=== PATIENT | female | born 1990 | race African-American/Black ===

== ENCOUNTER 2017-01-19 19:45 | Emergency (ER) | payer OTHER ==
[~2017-01-19] VITALS: Ht 157.5 cm; Wt 61.3 kg
[2017-01-19 22:35] VITALS: BP 112/70
== END 2017-01-19 22:36 | disposition home or self-care (01) ==
LOC: EME 19:45
DX: M25.561 Pain in right knee (principal)
CPT/HCPCS: 93971; 99281; 99284

== ENCOUNTER 2017-01-22 23:17 | Emergency (ER) | payer OTHER ==
[~2017-01-22] VITALS: Ht 170.2 cm; Wt 61.9 kg
[2017-01-23] MEDS ORDERED: OMEPRAZOLE10 M1 PO (00:30)
[2017-01-23] MEDS ORDERED: LIDOCAINE20 MG/1 M5 PO (00:30)
[2017-01-23 00:38] VITALS: BP 114/70
== END 2017-01-23 00:40 | disposition home or self-care (01) ==
LOC: EME 23:17
DX: K21.9 Gastro-esophageal reflux disease without esophagitis (principal); R13.10 Dysphagia, unspecified
CPT/HCPCS: 99281; 99283

== ENCOUNTER 2017-09-07 00:17 | Emergency (ER) | payer OTHER ==
[~2017-09-07] VITALS: Ht 157.5 cm; Wt 58.8 kg
[~2017-09-07 00:17] MED LIST: LIDOCAINE20 MG/1 M5 PO; OMEPRAZOLE10 M1 PO
[2017-09-07 00:43] LABS: HEMATOCRIT 36.9 % (36.0-46.0); HEMOGLOBIN 12.3 G/DL (11.9-15.5); MCH 26.3 PG (29.0-34.0); MCHC 33.3 G/DL (30.0-36.0); PLATELET COUNT 267 K/uL (156-360); RBC DIS.WIDTH-CV 12.5 % (11.8-14.6); RBC DIS.WIDTH-SD 35.7 % (39-53); RED BLOOD COUNT 4.67 M/uL (3.80-5.20); WHITE BLOOD COUNT 10.3 K/uL (4.1-10.2)
[2017-09-07 00:55] LABS: CHLORIDE 108 mEq/L (99-109); POTASSIUM 3.7 mEq/L (3.7-5.4); SODIUM 139 mEq/L (136-147)
[2017-09-07 00:57] LABS: GLUCOSE 101 mg/dL (70-99)
[2017-09-07 01:01] LABS: CREATININE 0.8 mg/dL (0.6-1.3); GFR ESTIMATE (CALCULATED) > 59 mL/min/
[2017-09-07 01:02] LABS: UREA NITROGEN (BUN) 10 mg/dL (9-23)
[2017-09-07 01:10] LABS: QUANTITATIVE HCG < 4.0 MIU/ML
[2017-09-07 01:17] LABS: APPEARANCE CLEAR ((CLEAR)); BILIRUBIN NEGATIVE; BLOOD NEGATIVE; COLOR YELLOW ((YELLOW)); GLUCOSE (STRIP) NEGATIVE; KETONES NEGATIVE; LEUKOCYTES NEGATIVE; NITRITE NEGATIVE; PROTEIN (STRIP) NEGATIVE; SPECIFIC GRAVITY 1.011 (1.000-1.030); UCUL ADDED? NO; UROBILINOGEN 0.2 MG/DL (0.2-1.0)
[2017-09-07] MEDS ORDERED: ZOFRAN4 MG PO (01:35)
[2017-09-07 02:06] VITALS: BP 122/59
== END 2017-09-07 02:07 | disposition home or self-care (01) ==
LOC: EME 00:17
DX: R11.2 Nausea with vomiting, unspecified (principal); R19.7 Diarrhea, unspecified
CPT/HCPCS: 80048; 81003; 84702; 85027; 99281; 99284

== ENCOUNTER 2017-10-18 00:32 | Emergency (ER) | payer OTHER ==
[~2017-10-18] VITALS: Ht 157.5 cm; Wt 59.8 kg
[~2017-10-18 00:32] MED LIST changes: +ZOFRAN4 MG PO
[2017-10-18 00:35] VITALS: BP 112/72
== END 2017-10-18 01:50 | disposition left against medical advice (07) ==
LOC: EME 00:32
DX: M79.89 Other specified soft tissue disorders (principal); Z53.21 Procedure and treatment not carried out due to patient leaving prior to being seen by health care provider